=== PATIENT | female | born 1995 | race Caucasian/White ===

== ENCOUNTER 2022-01-10 10:40 | Emergency (ER) | payer OTHER ==
--- OUTSIDE RECORDS SUMMARY | 2022-01-10 10:44 | XMS REPORT | Continuity of Care Document ---
:1995 Author Organization [facility] t Address [address] [place] [address] Care Team Providers Name Role Phone Simon FREEMAN Primary Care Physician Unavailable PETE Attending Clinician Unavailable Simon FREEMAN Attending Clinician Unavailable Pete MANAGER APPLIED, N Attending Clinician Javon CARRASQUILLO Attending Clinician Unavailable Payers Payer Name Policy Type Policy Number Effective Date Expiration Date S kartik [place] [employer] [id number] 2016 HEALTH 00:00:00 Problems Condition Condition Condition Status Onset Resolution Last Treating Co mments Source Name Details Category Date Date Treatment Clinician Date Rubella Rubella Disease Active 2020-11 Univers non-immune non-immune 2-08 it y of status, status, 00:00: [place] antepartum antepartum 00 Me dical Branch Supervisio Supervisio Disease Active 2020-11 U nivers n of high n of high 2-07 ity of risk risk 00:00: [place] , , 00 Me dical antepartum antepartum Br anch Multiparit Multiparit Disease Active 2020-11 U nivers y y 2-07 ity of 00:00: [address] BMI BMI Disease Active 2020-11 Univers 28.0-28.9, 28.0-28.9, 2-07 it y of adult adult 00:00: [address] Previous Previous Disease Active 2020-11 Unive rs 2-07 ity of delivery delivery 00:00: [place] affecting affecting 00 Medi dax , , Br anch antepartum antepartum Ketonuria Ketonuria Disease Active 2020-11 Uni vers 2-07 ity of 00:00: [address] Nausea and Nausea and Disease Active 2020-11 U nivers vomiting vomiting 2-07 ity of of of 00:00: [place] , , 00 Me dical antepartum antepartum Br anch Allergies, Adverse Reactions, Alerts Allergy Allergy Status Severity Reaction(s) Onset Inactive Treating Comm ents Source Name Type Date Date Clinician NO KNOWN Drug Active Univers ALLERGIE Class ity of S [facility] Social History Social Habit Start Date Stop Date Quantity Comments Source ASSERTION 2021-09-19 [facility] 00:00:00 [facility] Exposure to Not sure [facility] SARS-CoV-2 [facility] (event) [place] Alcohol intake 2021-11-06 2021-11-06 0 /d [facility] 00:00:00 00:00:00 [facility] Tobacco Comment 2016-04-17 2016-04-17 Just occasional Univ ersity of 00:00:00 00:00:00 on weekends [facility] Tobacco use and 2016-04-17 2016-04-17 Never used Universit y of exposure 00:00:00 00:00:00 [facility] Sex Assigned At [birth year] Universit y of 00:00:00 00:00:00 [facility] Smoking Status Start Date Stop Date Source Former smoker 2016-04-17 00:00:00 2016-04-17 00:00:00 [facility] Medications Ordered Filled Start Stop Current Ordering Indication Dosage Frequency Signature Comments Components Source Medication Medication Date Date Medication? Clinician (SIG) Name Name proMETHazin 2020-11 Yes [id number] 25mg Take 1 Univers e 25 mg 2-07 tablet by ity of tablet 00:00: mouth [place] 00 every 4 Medical (four) Branch hours as needed for Nausea and Vomiting (N/V). PNV 67-iron 2020-11 Yes [id number] 1{capsu Take 1 Univers ps-folate 2-07 le} capsule by ity of no.1-dha 00:00: mouth [place] (VITAFOL 00 daily. Medical ULTRA) 29 Branch mg iron- 1 mg-200 mg Cap ondansetron 2020-11 Yes Univer s 4 mg 1-30 ity of disintegrat 00:00: [place] ing tablet 00 [facility] Branch Immunizations Ordered Filled Immunization Date Status Comments Sourc e Immunization Name Name TDAP 2016-07-11 Completed University 00:00:00 [facility] Procedures This patient has no known procedures. Encounters Start End Encounter Admission Attending Care Care Encounter Source Date/Time Date/Time Type Type Clinicians Facility Department ID 2021-12-01 2021-12-01 Outpatient R [facility] [id number] Univers 10:30:00 10:30[facility]00 [id number] 2021-12-01 2021-12-01 Outpatient P PETE [facility] [id number] Univers 09:45:00 09:45:00 MILKA sierra [facility] 2021-11-06 2021-11-06 [facility] [id number] Univers 09:30:00 16:27:53 BONNIE sierra [facility] 2021-11-06 2021-11-06 [email or web address] [id number] Univers 00:00:00 00:00:00 Bonnie Montes RN CARDIOVASCULAR [id number] it y of [facility] [id number] [place] as MATERNAL [id number] Med ical & CHILD [address] [place] [address] 2021-10-31 2021-10-31 [facility] [id number] Univers 14:15:00 14:21:30 BONNIE sierra [facility] 2021-04-07 2021-04-07 [facility] [id number] Univers 19:40:00 19:40:00 TOBI sierra o f [facility] Results This patient has no known results.
[2022-01-10 11:24] LABS: Urine Glucose Negative (Negative); Urine Specific Gravity 1.015 (1.005-1.030)
[2022-01-10 11:25] LABS: Urine Blood Negative (Negative); Urine Protein Negative (Negative)
[2022-01-10 11:35] LABS: Absolute Lymphocytes (CBC) 2.7 K/uL (0.7-4.9); Hematocrit 41.2 % (36.0-45.0); Lymphocytes % 26.5 % (15.3-44.8); MPV 8.5 fL (7.6-11.3); RBC Red Blood Cell Count 4.73 M/uL (3.86-4.86)
[2022-01-10 12:05] LABS: BUN Blood Urea Nitrogen 5 mg/dL (7-18); Bicarbonate 21 mmol/L (21-32); Glucose Level 83 mg/dL (74-106); Potassium 3.5 mmol/L (3.5-5.1); Sodium Level 136 mmol/L (136-145)
[2022-01-10 12:17] LABS: HCG, Quantitative 8668 mIU/mL (1-3)
[2022-01-10] MEDS ORDERED: NA CHLORIDE 0.9% 1,000 ML ONE (12:22)
--- NOTE | 2022-01-10 13:27 | RAD REPORT ---
EXAM DESCRIPTION: CT - Chest For Pe Angio - 01/10/2022 1:15 pm CLINICAL HISTORY: Weakness COMPARISON: No comparisons FINDINGS: Chest Wall: No suspicious thyroid nodules or pathologic lymphadenopathy. Lungs: 3 mm subpleural nodule right lower lobe is almost certainly benign. Pleura: No significant effusions or pneumothorax. Mediastinum/landy: No pathologic lymphadenopathy. Pulmonary arteries/Aorta: No filling defect identified. No aortic aneurysm. Heart: No significant pericardial effusion. Normal heart size. Upper abdomen: No acute abnormality. Bones: No acute abnormality. All CT scans are performed using dose optimization technique as appropriate and may include automated exposure control or mA/KV adjustment according to patient size. IMPRESSION: Negative for pulmonary embolism. No other acute findings within the chest.
[2022-01-10 13:42] LABS: Urine Specific Gravity/Preg 1.015 (1.005-1.030)
[2022-01-10] MEDS ORDERED: NITROFURAN MACRO 100 MG CAP PO ONE (14:05)
--- NOTE | 2022-01-10 14:06 | EDPHYS ---
Physician Documentation [facility] Name: Shruthi Guerrero Age: 26 yrs Sex: Female : 1995 Arrival Date: 01/10/2022 Time: 10:44 Bed 26 Private MD: ED Physician Atif Antony HPI: 01/11 07:11 This 26 yrs old Female presents to ER via Ambulatory with complaints of 16wks , kdr Weakness, Dizziness. 07:11 The patient presents to the emergency department with weakness of the entire body, kdr generalized weakness. Onset: The symptoms/episode began/occurred gradually, 3 day(s) ago. Context: occurred at home, occurred while the patient was at rest. Associated signs and symptoms: Pertinent positives: dizziness, Minor. Severity of symptoms: At their worst the symptoms were mild in the emergency department the symptoms are unchanged. Patient's baseline: Neuro: alert and fully oriented, Motor: no deficits, Ambulation: walks without assistance. Current symptoms: Generally just feels weak. The patient has not experienced similar symptoms in the past. Routine care. 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 - Social history:: Smoking status: Patient/guardian denies using tobacco, the patient reports quitting approximately 5 years ago. ROS: 01/11 07:11 Constitutional: Negative for fever, chills, and weight loss, Eyes: Negative for injury, kdr pain, redness, and discharge, ENT: Negative for injury, pain, and discharge, Neck: Negative for injury, pain, and swelling, Cardiovascular: Negative for chest pain, palpitations, and edema, Respiratory: Negative for shortness of breath, cough, wheezing, and pleuritic chest pain, Abdomen/GI: Negative for abdominal pain, nausea, vomiting, diarrhea, and constipation, Back: Negative for injury and pain, : Negative for injury, bleeding, discharge, and swelling, MS/Extremity: Negative for injury and deformity, Skin: Negative for injury, rash, and discoloration, Psych: Negative for depression, anxiety, suicide ideation, homicidal ideation, and hallucinations, Allergy/Immunology: Negative for hives, rash, and allergies, Endocrine: Negative for neck swelling, polydipsia, polyuria, polyphagia, and marked weight changes. Neuro: Positive for dizziness, weakness, Very minor symptoms, Negative for altered mental status, gait disturbance, headache, numbness, seizure activity, speech changes, syncope, near syncope, tinnitus, tremor, visual changes, acute changes. Exam: 07:11 Constitutional: This is a well developed, well nourished patient who is awake, alert, kdr and in no acute distress. Head/Face: Normocephalic, atraumatic. Eyes: Pupils equal round and reactive to light, extra-ocular motions intact. Lids and lashes normal. Conjunctiva and sclera are non-icteric and not injected. Cornea within normal limits. Periorbital areas with no swelling, redness, or edema. Neck: Trachea midline, no thyromegaly or masses palpated, and no cervical lymphadenopathy. Supple, full range of motion without nuchal rigidity, or vertebral point tenderness. No Meningismus. Chest/axilla: Normal chest wall appearance and motion. Nontender with no deformity. No lesions are appreciated. Cardiovascular: Regular rate and rhythm with a normal S1 and S2. No gallops, murmurs, or rubs. Normal PMI, no JVD. No pulse deficits. Respiratory: Lungs have equal breath sounds bilaterally, clear to auscultation and percussion. No rales, rhonchi or wheezes noted. No increased work of breathing, no retractions or nasal flaring. Abdomen/GI: Soft, non-tender, with normal bowel sounds. No distension or tympany. No guarding or rebound. No evidence of tenderness throughout. Back: No spinal tenderness. No costovertebral tenderness. Full range of motion. Skin: Warm, dry with normal turgor. Normal color with no rashes, no lesions, and no evidence of cellulitis. MS/ Extremity: Pulses equal, no cyanosis. Neurovascular intact. Full, normal range of motion. Neuro: Awake and alert, GCS 15, oriented to person, place, time, and situation. Cranial nerves II-XII grossly intact. Motor strength 5/5 in all extremities. Sensory grossly intact. Cerebellar exam normal. Normal gait. Psych: Awake, alert, with orientation to person, place and time. Behavior, mood, and affect are within normal limits. Vital Signs: 01/10 10:57 BP 123 / 89; Pulse 96; Resp 14; Temp 98.3(O); Pulse Ox 100% on R/A; Weight 62.6 kg; ab2 Height 4 ft. 11 in. (149.86 cm) (R); 11:45 BP 113 / 84; Pulse 95; Resp 18; Pulse Ox 100% on R/A; ic1 12:51 BP 112 / 79; Pulse 98; Resp 18; Pulse Ox 100% on R/A; ic1 14:08 Pulse 91; Resp 16; Pulse Ox 100% on R/A; ic1 10:57 Body Mass Index 27.87 (62.60 kg, 149.86 cm) ab2 MDM: 14:05 Patient medically screened. kdr 01/11 07:11 Data reviewed: vital signs, nurses notes, lab test result(s), radiologic studies. kdr Counseling: I had a detailed discussion with the patient and/or guardian regarding: the historical points, exam findings, and any diagnostic results supporting the discharge/admit diagnosis, lab results, radiology results, the need for outpatient follow up. 07:17 ED course: Patient was stable in the ED. On my exam, she was intermittently tachycardic kdr although I note that this is not recorded in the nurses notes. That was the basis for my concern for possible PE. Patient otherwise was nontoxic and nonacute in the ED. Given her and her hypercoagulable state, along with the intermittent tachycardia and weakness, I ruled out a pulmonary emboli. 01/10 11:05 Order name: Abo/rh Typing kdr 01/10 11:05 Order name: Basic Metabolic Panel kdr 01/10 11:05 Order name: CBC with Diff kdr 01/10 11:05 Order name: Quantitative Hcg kdr 01/10 11:05 Order name: D-Dimer kdr 01/10 11:06 Order name: ABO/RH typing; Complete Time: 12:07 EDMS 01/10 11:06 Order name: Basic Metabolic Panel; Complete Time: 13:00 EDMS 01/10 11:06 Order name: CBC with Automated Diff; Complete Time: 12:07 EDMS 01/10 11:06 Order name: HCG, Quantitative; Complete Time: 13:00 EDMS 01/10 11:06 Order name: D-Dimer; Complete Time: 12:07 EDMS 01/10 11:23 Order name: Urine Dipstick-Ancillary; Complete Time: 12:07 EDMS 01/10 11:31 Order name: Urine --Ancillary (enter results); Complete Time: 13:56 bd 01/10 12:41 Order name: ABO/RH no charge; Complete Time: 13:00 EDMS 01/10 13:47 Order name: COVID-19/FLU A+B (Document "Date of Onset" if Symptomatic) ic1 01/10 11:05 Order name: IV Saline Lock; Complete Time: 11:44 kdr 01/10 11:05 Order name: Labs collected and sent; Complete Time: 11:44 kdr 01/10 11:05 Order name: NPO; Complete Time: 11:44 kdr 01/10 11:05 Order name: Urine Dipstick-Ancillary (obtain specimen); Complete Time: 11:44 kdr 01/10 12:10 Order name: CT Chest For PE Angio; Complete Time: 13:56 kdr 01/10 13:47 Order name: COVID-19/FLU A+B EDMS Administered Medications: 01/10 12:21 Drug: NS 0.9% 1000 ml Route: IV; Rate: 1 bolus; Site: right subclavian; ic1 14:08 Follow up: IV Status: Completed infusion; IV Intake: 1000ml ic1 14:02 Not Given (Physician Discretion): Bactrim (trimethoprim-sulfamethoxazole) 160 mg-800 mg iw (DS) 160 mg PO every 6 hours 14:07 Drug: Nitrofurantoin 100 mg Route: PO; ic1 Point of Care Testing: Urine : 11:45 hCG Reading: Positive; Control Reading: Positive; ic1 Disposition Summary: 01/10/22 14:05 Discharge Ordered Location: Home kdr Problem: new kdr Symptoms: have improved kdr Condition: Stable kdr Diagnosis - Weakness kdr - Nausea kdr - Vomiting without nausea kdr - UTI/ Urinary tract infection, site not specified kdr Followup: kdr - With: Private Physician - When: 2 - 3 days - Reason: If symptoms return, Further diagnostic work-up, Recheck today's complaints, Continuance of care, Re-evaluation by your physician Discharge Instructions: - Discharge Summary Sheet kdr - Fatigue kdr - Urinary Tract Infection, Adult, [id number] kdr - Weakness, [id number] kdr Forms: - Medication Reconciliation Form kdr - Thank You Letter kdr - Antibiotic Education kdr Prescriptions: - Macrobid 100 mg Oral Capsule - take 1 capsule by ORAL route every 12 hours for 7 days; 14 capsule; Refills: 0, kdr Product Selection Permitted Signatures: Dispatcher [employer] Atif Michelle MD MD kdr Creggett, Iesha, RN RN hai1 Jose Alexander Irene RN iw
--- NOTE | 2022-01-10 14:06 | ER ---
Nurse's Notes [facility] Name: Shruthi Guerrero Age: 26 yrs Sex: Female : 1995 Arrival Date: 01/10/2022 Time: 10:44 Bed 26 Private MD: Diagnosis: Weakness;Nausea;Vomiting without nausea;UTI/ Urinary tract infection, site not specified Presentation: 01/10 10:57 Chief complaint: Patient states: I am 4 months and I feel weak, dizzy and sob ab2 for the last hr. 2 Para 1. Coronavirus screen: Vaccine status: Patient reports being unvaccinated. Ebola Screen: Patient negative for fever greater than or equal to 101.5 degrees Fahrenheit, and additional compatible Ebola Virus Disease symptoms Patient denies exposure to infectious person. Patient denies travel to an Ebola-affected area in the 21 days before illness onset. Initial Sepsis Screen: Does the patient meet any 2 criteria? No. Patient's initial sepsis screen is negative. Does the patient have a suspected source of infection? No. Patient's initial sepsis screen is negative. Risk Assessment: Do you want to hurt yourself or someone else? Patient reports no desire to harm self or others. 10:57 Method Of Arrival: Ambulatory ab2 10:57 Acuity: LOLIS 3 ab2 Triage Assessment: 11:01 General: Appears uncomfortable, Behavior is calm. Pain: Denies pain. ab2 BRUSH HAND: 10:59 LMP 09/25/2021 ab2 Historical: - Allergies: 11:01 No Known Allergies; ab2 - Home Meds: 11:01 Vitamin Oral tab 1 tab once daily [Active]; Promethazine Oral [Active]; ab2 - Immunization history:: Client reports having NOT received the Covid vaccine. - Social history:: Smoking status: Patient/guardian denies using tobacco, the patient reports quitting approximately 5 years ago. Screenin:00 Abuse screen: Denies threats or abuse. Denies injuries from another. Nutritional ab2 screening: No deficits noted. Tuberculosis screening: No symptoms or risk factors identified. Fall Risk None identified. Assessment: 11:45 General: Appears in no apparent distress. comfortable, Behavior is calm, cooperative, ic1 appropriate for age. Pain: Denies pain. Neuro: Level of Consciousness is awake, alert, obeys commands, Oriented to person, place, time, situation. Cardiovascular: Reports fatigue, lightheadedness, Denies chest pain, shortness of breath. Respiratory: No deficits noted. GI: No deficits noted. : No deficits noted. EENT: No deficits noted. Derm: No deficits noted. Musculoskeletal: No deficits noted. 12:50 Reassessment: pt transported to CT via stretcher. ic1 Vital Signs: 10:57 BP 123 / 89; Pulse 96; Resp 14; Temp 98.3(O); Pulse Ox 100% on R/A; Weight 62.6 kg; ab2 Height 4 ft. 11 in. (149.86 cm) (R); 11:45 BP 113 / 84; Pulse 95; Resp 18; Pulse Ox 100% on R/A; ic1 12:51 BP 112 / 79; Pulse 98; Resp 18; Pulse Ox 100% on R/A; ic1 14:08 Pulse 91; Resp 16; Pulse Ox 100% on R/A; ic1 10:57 Body Mass Index 27.87 (62.60 kg, 149.86 cm) ab2 ED Course: 10:44 Patient arrived in ED. mr 10:59 Triage completed. ab2 11:01 Estefani Lorenz, MARIBEL is Primary Nurse. ic1 11:01 Arm band placed on right wrist. ab2 11:05 Atif Antony MD is Attending Physician. kdr 11:44 Quantitative Hcg Sent. ic1 11:44 CBC with Diff Sent. ic1 11:44 Basic Metabolic Panel Sent. ic1 11:44 Abo/rh Typing Sent. ic1 11:44 Basic Metabolic Panel Sent. ic1 11:44 HCG, Quantitative Sent. ic1 11:45 Patient has correct armband on for positive identification. Placed in gown. Bed in low ic1 position. Call light in reach. Side rails up X2. 11:45 Pulse ox on. NIBP on. Door closed. Warm blanket given. ic1 11:45 Inserted saline lock: 20 gauge in right antecubital area, using aseptic technique. ic1 Blood collected. 11:45 No provider procedures requiring assistance completed. ic1 13:15 CT Chest For PE Angio In Process Unspecified. EDMS 14:07 IV discontinued, intact, bleeding controlled, No redness/swelling at site. Pressure ic1 dressing applied. Administered Medications: 12:21 Drug: NS 0.9% 1000 ml Route: IV; Rate: 1 bolus; Site: right subclavian; ic1 14:08 Follow up: IV Status: Completed infusion; IV Intake: 1000ml ic1 14:02 Not Given (Physician Discretion): Bactrim (trimethoprim-sulfamethoxazole) 160 mg-800 mg iw (DS) 160 mg PO every 6 hours 14:07 Drug: Nitrofurantoin 100 mg Route: PO; ic1 Point of Care Testing: Urine : 11:45 hCG Reading: Positive; Control Reading: Positive; ic1 Intake: 14:08 IV: 1000ml; Total: 1000ml. ic1 Outcome: 14:05 Discharge ordered by . gaston 14:07 Discharged to home ambulatory. ic1 14:07 Condition: stable 14:07 Discharge instructions given to patient, Instructed on discharge instructions, follow up and referral plans. Demonstrated understanding of instructions, follow-up care, medications, Prescriptions given X 1. 14:12 Patient left the ED. ic1 Signatures: Dispatcher [employer] EDMS Atif Antony MD MD kdr Rivera, Mary mr Creggett, Iesha, RN RN ic1 Jose Alexander Irene RN iw
[2022-01-10 14:27] VITALS: TEMP 98.3; O2SAT 100
[2022-01-10 14:30] VITALS: BP 112/79
[2022-01-10 16:47] LABS: SARS-COV-2 RT PCR NEGATIVE (NEGATIVE)
== END 2022-01-10 14:12 | disposition home or self-care (01) ==
LOC: ER 10:40
DX: O23.42 Unspecified infection of urinary tract in pregnancy, second trimester (principal); N39.0 Urinary tract infection, site not specified; Z3A.16 16 weeks gestation of pregnancy; Z20.822 Contact with and (suspected) exposure to COVID-19
CPT/HCPCS: 96361; 85025; 80048; 36415; 86900; 81025; 86901; 85379; 84702; 81003; 0240U; 71275; 96360; 99284; Q9967; J7030